=== PATIENT | female | born 1955 | race Caucasian/White ===

== ENCOUNTER 2017-05-27 18:14 | Observation (INO) | payer BC ==
[~2017-05-27] VITALS: Ht 180.3 cm; Wt 122.0 kg
--- NOTE | ~2017-05-27 | EKG ---
PATIENT: LAI VERA UNIT #: [id number] Ventricular Rate: 78 BPM Atrial Rate: 78 BPM P-R Interval: 146 ms QRS Duration: 96 ms Q-T Interval: 398 ms QTC Calculation(Bezet): 453 ms P Vernon: 66 degrees Calculated R Vernon: -20 degrees Calculated T Vernon: 35 degrees Diagnosis Line: Normal sinus rhythm Diagnosis Line: Pulmonary disease pattern Diagnosis Line: No previous ECGs available Diagnosis Line: Confirmed by KENDAL VÁSQUEZ MD ([id number]) on 05/28/2017 Diagnosis Line: 6:24:06 PM INTERPRETING MD: FAHAD YEBOAH
--- NOTE | ~2017-05-27 | CT16 ---
[facility] A Service of [facility] & [facility] RADIOLOGY TEXT RESULTS PATIENT: LAI VERA LOCATION: [facility] 569-01 : [birth year] UNIT #: [id number] AGE: [address]: Tyrel Alcazar MD SEX: F ORDER DR: [id number] [facility] [address] [place], [place] [address] [id number] I MR#: [id number] Acc #: [id number] NAME: LAI VERA : 1955 SEX: F STUDY DATE/TIME: 05/27/2017 22:36 UNIT: [facility] ROOM: [facility] STUDY DESCRIPTION: CT Angio Chest for PE Attending Physician: Jimmie Alcazar M.D. Ordering Physician: Benjamin Chambers D.O. Primary Care Physician: Primary Care Physician No MEDICAL IMAGING REPORT This report is preliminary unless electronic signature is present EXAM Chest CTA 05/27/2017 22:37 INDICATION Elevated D-dimer today. Chest pain that started this morning in the sternal area. TECHNIQUE Axial images were obtained through the chest following IV contrast administration. 3-D reformats were obtained. This CT examination was performed with one or more of the following radiation dose reduction techniques: automatic exposure control, adjustment of mA and/or kV according to patient size, and iterative reconstruction. Comparison made with 10/02/2009. FINDINGS No pulmonary embolism is identified. The aortic lumen is not well opacified due to timing of the bolus but there is no evidence for dissection. There is no pleural or pericardial effusion. No adenopathy is seen. There is chronic bronchiectasis and fibrosis with volume loss in the right middle lobe. Bronchiectasis and volume loss also noted in the left lower lobe. This is unchanged. There is some mild bronchiectasis and scarring in the medial aspect of the right lower lobe. Lungs are otherwise clear. 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 This is unchanged. There are no fractures. Upper abdomen shows cholecystectomy. IMPRESSION 1. No pulmonary embolism. The aortic lumen is not well opacified due to bolus timing, but there is nothing to suggest a dissection. 2. No active disease in the chest. 3. Stable areas of bronchiectasis and chronic volume loss in the right STS. [facility] A Service of [facility] RADIOLOGY TEXT RESULTS PATIENT: LAI VERA LOCATION: [facility] 569-01 : 59 UNIT #: [id number] AGE: [address]: Tyrel Alcazar MD SEX: F ORDER DR: middle and left lower lobes. Stable bronchiectasis and adjacent scarring in the right lower lobe. 4. 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 This is stable. No acute osseous abnormality. Dictated by... Janusz Bo Jr., M.D. THIS IS AN ELECTRONICALLY VERIFIED REPORT Janusz Bo Jr., M.D. at 05/29/2017 5:51 AM ROSIE/sachin TD: 05/28/2017 09:47 JOB #: [id number] MEDICAL IMAGING REPORT Page 1 of 1 COPY
--- NOTE | ~2017-05-27 | CR72 ---
[facility] A Service of [facility] & [facility] RADIOLOGY TEXT RESULTS PATIENT: LAI VERA LOCATION: [facility] 569-01 : 59 UNIT #: [id number] AGE: [address]: Tyrel Alcazar MD SEX: F ORDER DR: [id number] [facility] [address] [place], [place] [address] [id number] I MR#: [id number] Acc #: [id number] NAME: LAI VERA : 1955 SEX: F STUDY DATE/TIME: 05/27/2017 18:35 UNIT: [facility] ROOM: [facility] STUDY DESCRIPTION: CR Chest Single View Portable Attending Physician: Jimmie Alcazar M.D. Ordering Physician: Benjamin Chambers D.O. Primary Care Physician: No Primary Care Physician MEDICAL IMAGING REPORT This report is preliminary unless electronic signature is present EXAM Portable chest HISTORY Chest pain for 1 day. FINDINGS Mild hyperinflation of both lungs. Cardiac size and pulmonary vascularity are within normal limits. No airspace infiltrates or effusions. Probable mild scarring in the lung bases. IMPRESSION No acute findings. No active disease. Dictated by... Mandeep Holbrook M.D. THIS IS AN ELECTRONICALLY VERIFIED REPORT Mandeep Holbrook M.D. at 05/28/2017 11:17 PM DFL/df TD: 05/28/2017 07:47 JOB #: [id number] MEDICAL IMAGING REPORT Page 1 of 1 COPY
--- NOTE | ~2017-05-27 | DS ---
Unit #: [id number] #: [id number] Patient: LAI VERA [id number] [address] [address] [id number] I MR#: [id number] NAME: LAI VERA ROOM: 569 Age: 61 Sex: F Admission Date: 05/28/2017 : 1955 Discharge Date: Attending Physician: Jimmie Alcazar M.D. Primary Care Physician: Ceci Primary Care Physician DISCHARGE SUMMARY SHORT STAY SUMMARY ADDENDUM Dr. Ortega saw patient and evaluated and made some changes to her hypertension regimen. Those changes include tapering her off of the clonidine where she will take 0.1 mg twice a day tomorrow and then stop this medication. The patient will be started on chlorthalidone 25 mg p.o. daily as well as Norvasc 5 mg p.o. daily. The patient will follow up in the office with Dr. Morrow and have these medications escalated as appropriate and as blood pressure tolerates. The patient was explained the plan of care and will be discharged home today with those changes being made to the home medications. Dictated by... Latasha Rollins APRN for Tanya Manriquez TD: 05/28/2017 10:51 JOB #: [id number] DISCHARGE SUMMARY Page 1 of 1 X X DISCHARGE SUMMARY
--- NOTE | ~2017-05-27 | DS ---
Unit #: [id number] #: [id number] Patient: LAI VERA [id number] [address] [address] [id number] I MR#: [id number] NAME: LAI VERA ROOM: 569 Age: 61 Sex: F Admission Date: 05/28/2017 : 1955 Discharge Date: Attending Physician: Jimmie Alcazar M.D. Primary Care Physician: No Primary Care Physician DISCHARGE SUMMARY SHORT STAY SUMMARY REASON FOR ADMISSION Palpitations. HISTORY OF PRESENT ILLNESS The patient is a 61-year-old white female who follows with Dr. Morrow in the office. She has a history of normal coronaries for cardiac cath in January of this year, obstructive sleep apnea noncompliant with CPAP, hypertension, hyperlipidemia, asthma, fibromyalgia, situational depression and never smoker. The patient came to the hospital with complaints of an irregular heartbeat and palpitations at 6:30. The patient states that the episode started one hour prior to her arrival and ended just before she got here. The patient has had no further symptoms of palpitations or any irregular heartbeat since her admission to the hospital. The patient also complains that she was lightheaded, nauseous and short of breath but denied any diaphoresis or syncope. The patient had an abnormal Lexiscan February 05, 2017, that showed a medium size area of lateral ischemia suggestive of significant disease in the left circumflex territory. The patient subsequently underwent cardiac cath February 09, 2017, that showed normal coronaries. There is no echo in [facility] for review. An echo has been ordered here. PAST MEDICAL HISTORY 1. Abnormal Lexiscan February 05, 2017, that showed a medium size area of lateral ischemia suggestive of significant disease in the left circumflex territory. 2. Cardiac cath February 09, 2017, normal coronaries. 3. Obstructive sleep apnea, noncompliant with CPAP. 4. Hypertension. 5. History of hyperlipidemia, not on medications currently. 6. Asthma. 7. Fibromyalgia. 8. Situational depression. 9. Never smoker. SURGICAL HISTORY Includes: 1. Cholecystectomy. 2. Hysterectomy. 3. Left knee and shoulder arthroscopy. FAMILY HISTORY Patient's mom had high blood pressure and of a stroke. Dad had Unit #: [id number] #: [id number] Patient: LAI VERA rheumatic heart disease, valve replacement and also of a stroke. SOCIAL HISTORY The patient denies any alcohol, smoking or drug abuse. FAMILY HISTORY The patient lives at home with her family where she is fairly active. 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 She does her own housekeeping, cleaning, cooking. ALLERGIES Sulfa, Levaquin, atorvastatin. MEDICATIONS Home medications include: 1. Detrol 4 mg p.o. daily. 2. Topamax. 3. Fish oil. 4. Cymbalta 120 mg p.o. daily. 5. Prilosec 20 mg p.o. twice a day. 6. Adderall 30 mg p.o. daily. 7. Bystolic 20 mg p.o. daily. 8. Catapres 0.2 mg p.o. twice a day. 9. Singulair. 10. Flonase. REVIEW OF SYSTEMS Ten point review of systems negative except for what is listed above in the HPI. PHYSICAL EXAMINATION GENERAL: This is a 61-year-old white female who is alert and oriented x3, in no apparent distress. VITAL SIGNS: Blood pressure 162/101, temp 97.8, pulse 65, respirations 18. HEENT: Pupils equal, round, reactive. Oral mucosa is moist. NECK: No JVD, no thyromegaly, no lymphadenopathy, no carotid bruits. HEART: S1, S2. No S3, S4, no clicks, no rubs, no murmurs. Regular rate and rhythm. LUNGS: Clear. ABDOMEN: Soft. Bowel sounds are positive. Nontender, nondistended. EXTREMITIES: No swelling. NEUROLOGICAL: No known deficits noted. DIAGNOSTIC STUDIES LABORATORY: Troponin less than 0.05, then less than 0.05, then less than 0.03. Sodium 141, potassium 3.7, chloride 105, CO2 26, glucose 95, BUN 12, creatinine 0.6, GFR 99.8, cholesterol 196, triglycerides 155, LDL 130, HDL 35, mag 1.9. White count 12, hemoglobin 12.8, hematocrit 38.6, platelets are 313. INR is 0.9. IMAGING: Chest x-ray shows no acute findings. CARDIOVASCULAR: EKG - normal sinus rhythm with no ischemic changes. Some possible left atrial enlargement as well as some questionable mitral valve abnormalities with notched P waves noted in lead II. IMPRESSION Unit #: [id number] #: [id number] Patient: LAI VERA 1. Palpitations. 2. Normal coronaries per cath in January 2017. 3. Hypertension. 4. Obstructive sleep apnea, noncompliant with CPAP. 5. Fibromyalgia. 6. Patient reported history of hyperlipidemia with lipid profile reflecting borderline high cholesterol. PLAN Patient not having any further symptoms at this time and with normal ischemic workup recently. Would plan for outpatient event monitoring as I have ordered that through the office for the patient to have an event monitor. Following the event monitor, patient will follow up with Dr. Morrow in the office in eight weeks. Patient's blood pressure was elevated on admission. Would add Norvasc for further blood pressure control. Further recommendations pending Dr. Ortega's review of the patient as well as the chart. The patient will likely be discharged home today after seen by Dr. Ortega. Dictated by... Latasha Rollins APRN for Tanya Manriquez TD: 05/28/2017 09:12 JOB #: [id number] DISCHARGE SUMMARY Page 1 of 1 X X DISCHARGE SUMMARY
[~2017-05-27 18:14] MED LIST: ADDERALLXR PO; ALBUTEROL17 GM INH; BREO ELLIPTA I1 EACH INH; BYSTOLIC20 MG PO; CATAPRES-TTS-20.2 MG EXT; CYMBALTA PO; FLOVENT DI50 MCG/DIS INH; IRBESARTAN-HCT1 EACH PO; KLOR-CON PO; MAXALT MLT10 MG/TAB PO; PRILOSEC20 MG PO; TOPAMAX50 MG PO; ZYRTEC10 M2 PO
[2017-05-27 19:17] LABS: BASOPHIL% 0.3 % (0-2.5); EOSINOPHIL# 0.2 X10e3 (0-0.7); EOSINOPHIL% 1.8 % (0.0-7.0); HEMATOCRIT 38.6 % (35.0-45.0); HEMOGLOBIN 12.8 gm/dL (12.0-16.0); LYMPHOCYTE# 2.8 X10e3 (1.0-3.5); LYMPHOCYTE% 23.7 % (17.0-45.0); MEAN CELL VOLUME 88.5 FL (83-96); MEAN CORPUSCULAR HEMOGLOBIN 29.4 PG (28-34); MEAN CORPUSCULAR HGB CONC 33.2 g/dL (30-36); MEAN PLATELET VOLUME 9.9 FL (6.5-11.5); MONOCYTE# 1.2 X10e3 (0-1.0); MONOCYTE% 10.2 % (3.0-12.0); NEUTROPHIL# 7.7 X10e3 (1.5-7.1); PLATELET COUNT 313 X10e3 (140-420); RED BLOOD COUNT 4.36 X10e (3.90-5.30); RED CELL DISTRIBUTION WIDTH 14.5 % (11.0-15.5)
[2017-05-27 19:19] LABS: DIFF IND NO
[2017-05-27 19:23] LABS: POC - CKMB 1.6 ng/mL (0.0-7.9); POC - TROPONIN <0.05 ng/mL (<=0.05)
[2017-05-27 19:41] LABS: INR 0.9; PARTIAL THROMBOPLASTIN TIME 25.1 SECONDS (23.5-31.3); PROTHROMBIN TIME (PATIENT) 10.3 SECONDS (10.0-11.7)
[2017-05-27 19:45] LABS: ALKALINE PHOSPHATASE 78 U/L (32-92); ALT (SGPT) 18 U/L (10-40); AST (SGOT) 17 U/L (10-42); BILIRUBIN,TOTAL 0.5 mg/dL (0.2-2.0); BLOOD UREA NITROGEN 13 mg/dL (9-23); BUN/CREATININE RATIO 18.57; CALCIUM SERUM 9.2 mg/dL (8.4-10.2); CARBON DIOXIDE 29 mmol/L (22-31); CHLORIDE 108 mmol/L (100-111); CREATININE SERUM 0.7 mg/dL (0.6-1.4); GLOM FILT RATE Estimated 94.8 mL/min (>60); GLUCOSE FASTING 95 mg/dL (70-110); POTASSIUM 3.5 mmol/L (3.5-5.1); PROTEIN TOTAL SERUM 7.4 g/dL (6.0-8.3); SODIUM 144 mmol/L (135-145)
[2017-05-27 19:46] LABS: BILIRUBIN, DIRECT <0.1 mg/dL (0.0-0.2); BILIRUBIN,INDIRECT 0.4 mg/dL (0.0-0.9)
[2017-05-27 21:00] LABS: POC - CKMB 1.3 ng/mL (0.0-7.9); POC - TROPONIN <0.05 ng/mL (<=0.05)
[2017-05-28] MEDS ORDERED: DETROL PO (05:44)
[2017-05-28] MEDS ORDERED: CYMBALTA PO (05:45)
[2017-05-28] MEDS ORDERED: FISH OIL300 MG (05:45)
[2017-05-28] MEDS ORDERED: TOPAMAX (05:45)
[2017-05-28] MEDS ORDERED: PRILOSEC PO (05:46)
[2017-05-28] MEDS ORDERED: BYSTOLIC20 MG PO (05:46)
[2017-05-28] MEDS ORDERED: ADDERALLXR PO (05:46)
[2017-05-28] MEDS ORDERED: CLONIDINE PO (05:47)
[2017-05-28] MEDS ORDERED: SINGULAIR (05:47)
[2017-05-28] MEDS ORDERED: FLONASE SENSIM9.9 ML (05:49)
[2017-05-28 07:34] LABS: CALCIUM SERUM 8.6 mg/dL (8.4-10.2); CREATININE SERUM 0.6 mg/dL (0.6-1.4); GLOM FILT RATE Estimated 99.8 mL/min (>60); MAGNESIUM 1.9 mg/dL (1.6-3.0); POTASSIUM 3.7 mmol/L (3.5-5.1)
[2017-05-28 07:55] LABS: %MB 2.9 % (0.0-4.0); MB 2.1 ng/ml
[2017-05-28] MEDS ORDERED: NORVASC PO (09:53)
[2017-05-28] MEDS ORDERED: CHLORTHALIDONE25 MG PO (10:51)
[2017-05-28 12:43] LABS: BASOPHIL% 0.4 % (0-2.5); EOSINOPHIL# 0.2 X10e3 (0-0.7); EOSINOPHIL% 2.2 % (0.0-7.0); HEMATOCRIT 38.1 % (35.0-45.0); HEMOGLOBIN 12.8 gm/dL (12.0-16.0); LYMPHOCYTE# 2.4 X10e3 (1.0-3.5); LYMPHOCYTE% 24.4 % (17.0-45.0); MEAN CELL VOLUME 88.8 FL (83-96); MEAN CORPUSCULAR HEMOGLOBIN 29.8 PG (28-34); MEAN CORPUSCULAR HGB CONC 33.5 g/dL (30-36); MEAN PLATELET VOLUME 8.9 FL (6.5-11.5); MONOCYTE# 0.8 X10e3 (0-1.0); MONOCYTE% 8.3 % (3.0-12.0); NEUTROPHIL# 6.4 X10e3 (1.5-7.1); NEUTROPHIL% 64.7 % (40-75); PLATELET COUNT 273 X10e3 (140-420); RED BLOOD COUNT 4.29 X10e (3.90-5.30); RED CELL DISTRIBUTION WIDTH 14.6 % (11.0-15.5); WHITE BLOOD COUNT 9.9 X10e3 (4.0-10.5)
[2017-05-28 12:45] LABS: DIFF IND NO
[2017-05-28 13:24] LABS: %MB 2.8 % (0.0-4.0); MB 1.9 ng/ml
== END 2017-05-28 13:33 | disposition home or self-care (01) | DRG 313 ==
LOC: CED 18:14 → CEDOF 05-28 02:40 → C5C 05-28 02:59 → CED 05-28 02:59 → CEDOF 05-28 13:33 → C5C 05-28 13:33 → CEDOF 05-28 13:33 → C5C 05-28 13:33
PROVIDERS: Emergency Medicine; Internal Medicine Cardiovascular Disease
DX: R07.9 Chest pain, unspecified (principal); J47.9 Bronchiectasis, uncomplicated; M95.4 Acquired deformity of chest and rib
CPT/HCPCS: 36415; 71010; 71275; 80048; 80061; 80076; 82550; 82553; 83735; 84484; 85025; 85379; 85610; 85730; 93005; 99285; G0378; J2405; Q9967